=== PATIENT | female | born 1980 | race African-American/Black ===

== ENCOUNTER 2017-02-14 07:03 | Emergency (ER) | payer OTHER ==
[~2017-02-14] VITALS: Ht 167.6 cm; Wt 176.4 kg
[~2017-02-14 07:03] MED LIST: ALBUTEROL SULF8.5 GM IH; BENTYL20 MG PO; CARAFATE1 GM PO; FERROUS SULFAT325 MG PO; FLEXERIL10 MG PO; FUROSEMIDE20 MG PO; HYDROCODON-ACE1 EAC8 PO; LAMICTAL25 MG PO; LORTAB 5-325 M1 EACH PO; MEDROL DOSEPAK4 MG PO; MOTRIN400 MG PO; MOTRIN600 MG PO; NAPROSYN500 MG PO; NOHOMEMEDS; NORCO 7.5/321 TABLET PO; PERCOCET 5/31 TABLET PO; PHENTERMINE H37.5 MG PO; PREDNISONE20 MG PO; PREDNISONE50 MG PO; PRILOSEC40 MG PO; PROVENTIL HFA6.7 GM IH; PROVENTIL,2.5 MG/3 M IH; REGLAN10 MG PO; RISPERIDONE0.5 MG PO; TYLENOL WITH C1 EACH PO; ULTRAM50 MG PO; VALIUM5 MG PO; ZITHROMAX Z-PA250 MG PO
[2017-02-14 08:35] LABS: CHLORIDE 106 mEq/L (99-109); POTASSIUM 4.2 mEq/L (3.7-5.4); SODIUM 139 mEq/L (136-147)
[2017-02-14 08:37] LABS: GLUCOSE 103 mg/dL (70-99)
[2017-02-14 08:38] LABS: ANION GAP 9 MEQ/L (2-14)
[2017-02-14 08:41] LABS: GFR ESTIMATE (CALCULATED) > 59 mL/min/; UREA NITROGEN (BUN) 13 mg/dL (9-23)
[2017-02-14 08:45] LABS: TROP-I INTERPRETATION NEGATIVE; TROPONIN-I < 0.01 ng/mL (0.0-0.30)
[2017-02-14 09:44] LABS: EOSINOPHIL (%) 3.4 % (0-5); EOSINOPHIL COUNT 0.4 K/uL (0-0.3); HEMATOCRIT 34.2 % (36.0-46.0); IMMATURE GRANULOCYTE (%) 0.2 % (0.0-0.7); INSTRUMENT ABS NEUTROPHIL CT 5.4 K/uL; LYMPHOCYTE COUNT 3.9 K/uL (1.0-2.8); MCH 20.2 PG (29.0-34.0); MCHC 28.7 G/DL (30.0-36.0); MCV 70.5 FL (83-99); MONOCYTE (%) 7.2 % (3-12); MONOCYTE COUNT 0.8 K/uL (0-0.8); NEUTROPHIL (%) 51.9 % (45-76); NEUTROPHIL COUNT 5.4 K/uL (1.8-6.4); PLATELET COUNT 434 K/uL (156-360); RED BLOOD COUNT 4.85 M/uL (3.80-5.20); WHITE BLOOD COUNT 10.5 K/uL (4.1-10.2)
[2017-02-14] MEDS ORDERED: PRILOSEC OTC20 MG PO (10:50)
[2017-02-14] MEDS ORDERED: TYLENOL WITH C1 EACH PO (10:50)
[2017-02-14 11:02] VITALS: BP 140/78
== END 2017-02-14 11:04 | disposition home or self-care (01) ==
LOC: EME 07:03
PROVIDERS: Emergency Medicine
DX: J40 Bronchitis, not specified as acute or chronic (principal); R07.89 Other chest pain; F17.200 Nicotine dependence, unspecified, uncomplicated
CPT/HCPCS: 71010; 80048; 84484; 85025; 93005; 94640; 99281; 99285

== ENCOUNTER 2017-04-09 13:47 | Emergency (ER) | payer OTHER ==
[~2017-04-09] VITALS: Ht 165.1 cm; Wt 169.2 kg
[~2017-04-09 13:47] MED LIST changes: +PRILOSEC OTC20 MG PO
[2017-04-09 15:35] LABS: HEMATOCRIT 35.6 % (36.0-46.0); MCH 19.9 PG (29.0-34.0); MCHC 28.9 G/DL (30.0-36.0); MCV 68.7 FL (83-99); MEAN PLAT.VOLUME 9.4 uM^3 (9.5-12.4); PLATELET COUNT 514 K/uL (156-360); RBC DIS.WIDTH-CV 17.1 % (11.8-14.6); RBC DIS.WIDTH-SD 42.3 % (39-53); RED BLOOD COUNT 5.18 M/uL (3.80-5.20); WHITE BLOOD COUNT 8.9 K/uL (4.1-10.2)
[2017-04-09 15:38] LABS: CHLORIDE 104 mEq/L (99-109); POTASSIUM 3.8 mEq/L (3.7-5.4); SODIUM 139 mEq/L (136-147)
[2017-04-09 15:40] LABS: GLUCOSE 94 mg/dL (70-99)
[2017-04-09 15:41] LABS: ANION GAP 12 MEQ/L (2-14)
[2017-04-09 15:44] LABS: GFR ESTIMATE (CALCULATED) > 59 mL/min/
[2017-04-09 15:45] LABS: UREA NITROGEN (BUN) 17 mg/dL (9-23)
[2017-04-09] MEDS ORDERED: PREDNISONE50 MG PO (16:37)
[2017-04-09] MEDS ORDERED: PROVENTIL,2.5 MG/3 M IH (16:39)
[2017-04-09 16:52] VITALS: BP 131/75
== END 2017-04-09 17:04 | disposition home or self-care (01) ==
LOC: EME 13:47
DX: J45.909 Unspecified asthma, uncomplicated (principal); Z72.0 Tobacco use
CPT/HCPCS: 71020; 80048; 85027; 93005; 94640; 99281; 99284

== ENCOUNTER 2018-03-07 19:49 | Emergency (ER) | payer OTHER ==
[~2018-03-07] VITALS: Ht 162.6 cm; Wt 178.8 kg
[2018-03-07 20:33] LABS: HEMATOCRIT 36.3 % (36.0-46.0); HEMOGLOBIN 10.6 G/DL (11.9-15.5); MCHC 29.2 G/DL (30.0-36.0); MCV 68.5 FL (83-99); PLATELET COUNT 524 K/uL (156-360); RBC DIS.WIDTH-CV 18.2 % (11.8-14.6); RBC DIS.WIDTH-SD 42.8 % (39-53); WHITE BLOOD COUNT 16.4 K/uL (4.1-10.2)
[2018-03-07 20:36] LABS: ALBUMIN 3.9 g/dL (3.2-4.8)
[2018-03-07 20:37] LABS: CHLORIDE 106 mEq/L (99-109); POTASSIUM 4.1 mEq/L (3.7-5.4); SODIUM 138 mEq/L (136-147)
[2018-03-07 20:39] LABS: GLUCOSE 157 mg/dL (70-99); TOTAL PROTEIN 7.7 g/dL (6.4-8.3)
[2018-03-07 20:41] LABS: TOTAL BILIRUBIN 0.3 mg/dL (0.0-1.0)
[2018-03-07 20:42] LABS: ALKALINE PHOSPHATASE 88 IU/L (3-129)
[2018-03-07 20:43] LABS: CREATININE 0.8 mg/dL (0.6-1.3); GFR ESTIMATE (CALCULATED) > 59 mL/min/
[2018-03-07 20:44] LABS: AST (GOT) 13 IU/L (2-34); UREA NITROGEN (BUN) 14 mg/dL (9-23)
[2018-03-07 20:45] LABS: ALT (GPT) 12 IU/L (3-49)
[2018-03-07 20:51] LABS: QUANTITATIVE HCG < 4.0 MIU/ML
[2018-03-07 21:51] LABS: LIPASE 17 U/L (1.0-51.0)
[2018-03-07 21:56] LABS: BASOPHIL (%) 0.2 % (0-1); EOSINOPHIL (%) 1.9 % (0-5); EOSINOPHIL COUNT 0.3 K/uL (0-0.3); IMMATURE GRANULOCYTE (%) 0.4 % (0.0-0.7); LYMPHOCYTE (%) 35.1 % (15-42); LYMPHOCYTE COUNT 5.6 K/uL (1.0-2.8); MONOCYTE (%) 4.8 % (3-12); MONOCYTE COUNT 0.8 K/uL (0-0.8); NEUTROPHIL (%) 57.6 % (45-76); NEUTROPHIL COUNT 9.3 K/uL (1.8-6.4)
[2018-03-07 23:47] LABS: APPEARANCE SL.HAZY ((CLEAR)); BILIRUBIN NEGATIVE; BLOOD LARGE; COLOR YELLOW ((YELLOW)); GLUCOSE (STRIP) NEGATIVE; KETONES NEGATIVE; LEUKOCYTES TRACE; NITRITE NEGATIVE; PROTEIN (STRIP) 100; SPECIFIC GRAVITY 1.017 (1.000-1.030); UROBILINOGEN 0.2 MG/DL (0.2-1.0)
[2018-03-07 23:53] LABS: BACTERIA RARE /HPF; EPITHELIAL CELLS 1+ /HPF; MUCUS 1+ /LPF; RED BLOOD CELLS TNTC /HPF (0-5); UCUL ADDED? YES; WHITE BLOOD CELLS 20-30 /HPF (0-5)
[2018-03-08] MEDS ORDERED: ZOFRAN ODT8 MG PO (01:02)
[2018-03-08] MEDS ORDERED: BENTYL20 MG PO (01:02)
[2018-03-08 01:28] VITALS: BP 117/93
== END 2018-03-08 02:40 | disposition home or self-care (01) ==
LOC: EME 19:49
DX: R10.2 Pelvic and perineal pain (principal); R11.2 Nausea with vomiting, unspecified; R19.7 Diarrhea, unspecified; R03.0 Elevated blood-pressure reading, without diagnosis of hypertension; E66.01 Morbid (severe) obesity due to excess calories; Z68.44 Body mass index [BMI] 60.0-69.9, adult; Z11.3 Encounter for screening for infections with a predominantly sexual mode of transmission; Z91.040 Latex allergy status; F17.200 Nicotine dependence, unspecified, uncomplicated
CPT/HCPCS: 74176; 80053; 81003; 83690; 84702; 85025; 85027; 87086; 99281; 99284; J0500; J0696; J1885; J2765; J7030